=== PATIENT | female | born 1965 | race Caucasian/White ===

== ENCOUNTER 2023-07-23 15:14 | Emergency (ER) | payer BC, OTHER ==
[2023-07-23 15:22] VITALS: BP 156/68; PULSE 96; RESP 16; TEMP 98.3; BMI 36.1
[2023-07-23] MEDS ORDERED: predniSONE 20 MG TABLET (UD) PO ONE (18:16)
[2023-07-23] MEDS ORDERED: predniSONE 20 MG TABLET (UD) ONE (18:24)
== END 2023-07-23 19:21 | disposition home or self-care (01) ==
LOC: JERFT 15:14
DX: R21 Rash and other nonspecific skin eruption (principal)
CPT/HCPCS: 99283-25